=== PATIENT | male | born 1945 | race Caucasian/White ===

== ENCOUNTER 2022-02-09 09:10 | Emergency (ER) | payer MEDICARE, OTHER ==
[~2022-02-09 09:10] MED LIST: CYCLOBENZAPRINE10 MG PO; NORCO 5-325 TA1 EACH PO
[2022-02-09 10:47] LABS: ALBUMIN 3.1 g/dL (3.4-5.0); BILIRUBIN - TOTAL 0.6 mg/dL (0.2-1.0); BUN/CREAT RATIO (CALC) 14.4 RATIO; CREATININE 1.81 mg/dL (0.67-1.17); GLOBULIN (CALCULATION) 3.6 g/dL; MAGNESIUM 2.4 mg/dL (1.8-2.4); POTASSIUM 3.9 mmol/L (3.5-5.1); TOTAL PROTEIN 6.7 g/dL (6.4-8.2)
[2022-02-09 10:57] LABS: BASOPHIL 0.9 % (0-2); EOSINOPHIL 2.6 % (0-7); HCT 45.5 % (42.0-52.0); HGB 15.1 g/dl (13.2-18.0); LYMPHOCYTE 24.2 % (15-48); MCH 32.5 pg (25.0-31.0); MCHC 33.2 g/dL (32.0-36.0); MCV 97.8 fL (78.0-100.0); MONOCYTE 10.6 % (0-12); NEUTROPHIL 60.9 % (41-80); NRBC 0; PLT 138 K/uL (150-400); RBC 4.65 M/uL (4.70-6.00); RDW 13.9 % (11.5-14.0); WBC 6.6 K/uL (4.0-10.5)
[2022-02-09 12:01] LABS: BILIRUBIN NEGATIVE (NEGATIVE); BLOOD NEGATIVE Ery/uL (NEGATIVE); CLARITY CLEAR (CLEAR); COLOR YELLOW (YELLOW); GLUCOSE (U) NORMAL (NORMAL); LEUKOCYTES NEGATIVE Leu/uL (NEGATIVE); NITRITE NEGATIVE (NEGATIVE); PROTEIN TRACE (LOW) mg/dL (NEGATIVE); SPECIFIC GRAVITY 1.015 (1.001-1.030); UROBILINOGEN 0.2 mg/dL (0.2-1.0); pH 7.5 (5.0-9.0)
[2022-02-09 12:23] LABS: SQUAMOUS EPITHELIAL CELLS RARE; URINARY WBC RARE
[2022-02-09] MEDS ORDERED: KEFLEX250 MG PO (15:08)
== END 2022-02-09 16:15 | disposition home or self-care (01) ==
LOC: FER 09:10
PROVIDERS: Emergency Medicine
DX: N30.90 Cystitis, unspecified without hematuria (principal); N18.30 Chronic kidney disease, stage 3 unspecified; I50.9 Heart failure, unspecified; I48.91 Unspecified atrial fibrillation
CPT/HCPCS: 36415; 80053; 81001; 83605; 83735; 84145; 85025; 87088; J0696; J1642; J7030